=== PATIENT | female | born 1970 | race Asian ===

== ENCOUNTER 2019-10-08 20:19 | Emergency (ER) | payer MEDICAID, OTHER ==
[~2019-10-08] VITALS: Ht 152.4 cm; Wt 50.0 kg
[2019-10-08] MEDS ORDERED: LORazepam 1 MG TABLET PO ONE (23:30)
[2019-10-08 23:53] LABS: BASOPHILS % (AUTO) 0.2 % (0.0-2.0); EOSINOPHILS % (AUTO) 0.1 % (1.0-6.0); HEMATOCRIT 42.8 % (36-46); HEMOGLOBIN 13.9 g/dL (12.0-16.0); LYMPHOCYTES # (AUTO) 1.6 K/uL (1.0-4.8); LYMPHOCYTES % (AUTO) 20.5 % (22.0-44.0); MEAN CORPUSCULAR HGB CONC 32.5 G/dL (31.0-37.0); MEAN CORPUSCULAR VOLUME 96 fL (80-100); MONOCYTES # (AUTO) 0.4 K/uL (0.1-1.0); MONOCYTES % (AUTO) 5.6 % (2.0-9.0); NEUTROPHILS # (AUTO) 5.8 K/uL (1.8-7.7); NEUTROPHILS % (AUTO) 73.6 % (40.0-70.0); PLATELET COUNT (AUTO) 232 K/uL (150-450); RED BLOOD CELL COUNT(AUTO) 4.47 MIL/uL (4.00-5.20); RED CELL DISTRIBUTION WIDTH 12.1 % (11.5-14.5)
[2019-10-09 00:08] LABS: ANION GAP 11 mmol/L (8-16); CALCIUM, TOTAL 9.1 mg/dL (8.8-10.5); CARBON DIOXIDE 25 mmol/L (22-29); CHLORIDE 103 mmol/L (98-107); GLOMERULAR FILTR. RATE CALC > 60 mL/min (>60); GLUCOSE,RANDOM 103 mg/dL (70-110); POTASSIUM 3.4 mmol/L (3.5-5.1); SODIUM SERUM 139 mmol/L (136-145); UREA NITROGEN, BLOOD 9 mg/dL (7-18)
[2019-10-09 00:33] LABS: CREATINE KINASE, TOTAL ONLY 84 U/L (26-192)
[2019-10-09 03:25] VITALS: BP 121/83
== END 2019-10-09 03:35 | disposition home or self-care (01) ==
LOC: EMS 20:20
DX: F41.9 Anxiety disorder, unspecified (principal); R42 Dizziness and giddiness; R91.1 Solitary pulmonary nodule
CPT/HCPCS: 36415; 71045; 71250; 80048; 82550; 83735; 84443; 84484; 85025; 93005; 99285; U0003

== ENCOUNTER 2019-10-17 19:53 | Emergency (ER) | payer MEDICAID ==
[~2019-10-17] VITALS: Ht 152.4 cm; Wt 47.7 kg
[2019-10-17] MEDS ORDERED: LORA-999 PO (20:01)
[2019-10-17] MEDS ORDERED: HYDR-4031 PO (20:01)
[2019-10-17 23:56] VITALS: BP 120/88
== END 2019-10-17 23:47 | disposition home or self-care (01) ==
LOC: EMS 19:57
DX: H92.01 Otalgia, right ear (principal); Z03.818 Encounter for observation for suspected exposure to other biological agents ruled out
CPT/HCPCS: 87430; 99283; U0003

== ENCOUNTER 2019-10-18 20:41 | Emergency (ER) | payer MEDICAID ==
[~2019-10-18] VITALS: Ht 154.9 cm; Wt 47.7 kg
[~2019-10-18 20:41] MED LIST: HYDR-4031 PO; LORA-999 PO
[2019-10-19 02:02] VITALS: BP 116/70
== END 2019-10-19 02:04 | disposition home or self-care (01) ==
LOC: EMS 20:41
DX: R04.2 Hemoptysis (principal); R91.1 Solitary pulmonary nodule; H92.01 Otalgia, right ear